=== PATIENT | male | born 1955 | race Caucasian/White ===

== ENCOUNTER → 2020-07-09 09:19 | Outpatient (CLI) | payer BC, SELFPAY ==
[2020-07-09 10:45] LABS: Add Manual Diff / Slide Review NO; Basophils Absolute Auto 100 /uL (0-100); Eosinophils Absolute Auto 200 /uL (0-450); Eosinophils Percent Auto 2.7 % (2-4); Hemoglobin 13.5 g/dL (13.5-17.5); Lymphocytes Absolute Auto 2400 /uL (1100-4500); Lymphocytes Percent Auto 26.6 % (25-40); Mean Corpuscular HGB Conc 33.7 % (30-36); Mean Corpuscular Hemoglobin 31.2 PG (26-34); Mean Corpuscular Volume 92.5 fL (80-100); Monocytes Absolute Auto 500 /uL (0-900); Monocytes Percent Auto 6.1 % (3-14); Neutrophils Absolute Auto 5600 /uL (1500-7000); Neutrophils Percent Auto 63.6 % (50-75); Platelet Count 288 X10^3/uL (150-400); Red Blood Cell Count 4.33 X10^6/uL (4.5-5.9); Red Cell Distribution Width 14.1 % (11.6-14.8); White Blood Cell Count 8.9 X10^3/uL (4.5-11.0)
== END ==
PROVIDERS: Family Provider Family Medicine; PCP Family Medicine; Referring Provider Podiatrist; Visit Provider Podiatrist
DX: Z01.818 Encounter for other preprocedural examination (principal); Z01.812 Encounter for preprocedural laboratory examination
CPT/HCPCS: 36415; 85025; 93005

== ENCOUNTER → 2020-08-03 14:11 | Outpatient (CLI) | payer BC, SELFPAY ==
[2020-08-03 15:35] LABS: COVID19 -Nasal RAPID Negative (Negative)
== END ==
PROVIDERS: Family Provider Family Medicine; PCP Family Medicine; Visit Provider Physician Assistant
DX: Z11.59 Encounter for screening for other viral diseases (principal)
CPT/HCPCS: 87635

== ENCOUNTER 2020-08-05 10:22 | Day surgery (SDC) | payer BC, SELFPAY ==
[2020-08-02 15:03] VITALS: BMI 30.1
[2020-08-05] VITALS (8 sets, daily range): BP systolic 136–166; BP diastolic 82–101; PULSE 82–91; RESP 11–18; TEMP 36.2–36.8; O2SAT 93–100; BMI 31.1
[2020-08-05] MEDS: LACTATED RINGERS 1,000 ML 100 ML IV ×2 (11:02→13:47)
--- NOTE | 2020-08-05 11:25 | PM.PREOP ---
Pre-operative Note COVID-19 COVID-19 status: Positive Result date/Date tested (Pos, Neg/Pending): 08/03/20 Interval Note History & Physical reviewed/Exam performed by Physician: Yes Changes to H&P: No
--- NOTE | 2020-08-05 11:26 | SUR.OPER ---
Supine on padded OR bed, head on pillow, arms secured on padded arm boards at <90 degrees abduction, legs uncrossed, safety belt at thigh, tape over blanket over nonoperative leg.
--- NOTE | 2020-08-05 11:26 | PM.OP.1 ---
Operative Date/Time/Diagnoses Date of procedure: 08/05/20 Time of procedure: : Pre-op diagnosis: Right first metatarsophalangeal joint arthritis Post-op diagnosis: same Procedure & Clinicians Procedure: Right first metatarsophalangeal joint arthrodesis Same procedure as scheduled: Yes Indications: Pain to the right great toe joint with spurring and other arthritic changes. Conservative measures failed to alleviate his pain and he wished to have surgical intervention at this time. Surgeon: Kristal Garza Click Yes if Unassisted: Yes Anesthesia Type: General Operative Notes Closure Type: primary Specimen(s): none sent Prosthetic devices, grafts, tissues, transplants, or devices: Verdigre great toe fusion plate with 4.0 cannulated screw, 3.5 and 2.7 screws (6), Vicryl, Nylon. Applied: implant(s) Estimated Blood Loss (mL): 30 Blood products transfused: none Tourniquet time (min): 86 Procedure in detail: The patient was brought to the operating room and placed on the operating table in the supine position. A tourniquet was placed about the patient's right ankle. After induction of general anesthesia the foot and ankle were prepped and draped in the usual aseptic manner. The tourniquet was inflated. Incision was made over the dorsal aspect of the right 1st metatarsophalangeal joint. The incision was deepened through subcutaneous tissues being careful to identify and retract all vital neurovascular structures. All bleeders were cauterized and ligated necessary. A significant amount of degenerative exostoses were noted to the dorsal 1st metatarsophalangeal joint. The capsule was opened and I also noted an enlarged medial eminence of the 1st metatarsal head. A saw was used to resect the medial eminence enlargement as well as some of the more prominent areas of spurring at the 1st metatarsophalangeal joint. The joint showed near complete loss of the articular cartilage on the 1st metatarsal head and just less than that on the phalangeal base. A guidewire was placed in the 1st metatarsal head and a reamer was used to resect the cartilage from the 1st metatarsal head and prepare the joint. The same procedure was performed to the proximal phalanx base. These guidewires were then removed. Subchondral drilling was performed to either side with the guidewire as well as some fish scaling using a small osteotome. The area was irrigated with copious amount of normal sterile saline. Temporary fixation across the joint was placed with a guidewire and this was checked under C-arm to be in appropriate alignment. A plate was chosen and any further reduction of prominences dorsally was performed with a rasp and rongeur. Using the aid of fluoroscopy, the guide wire was used as cannulation for the drill for a lag screw from the distal medial to proximal lateral 1st metatarsal phalangeal joint. Confirmed appropriate in all 3 planes, a partially threaded screw was placed and the guidewire removed. Good strength and reduction of the former joint. Plate was placed and with the aid of fluoroscopy a series of locking screws and a nonlocking screw were placed across the plate and steadied the joint well. Of this was checked on C-arm. The area is irrigated with copious amounts normal sterile saline. The tourniquet was deflated and prompt hyperemic response was seen to the foot. And no motion was noted at the 1st MTPJ. Subcutaneous closure was performed using Vicryl and nylon was used to close the skin. A sterile lightly compressive dressing was placed on the foot and he was placed in his postoperative boot. He was transferred to the PACU with vital signs stable and vascular status intact. Complications: none Post-operative Condition: stable Disposition: PACU Plan for aftercare: Following a period of postoperative monitoring, the patient be discharged home on written and oral postoperative instructions including keeping the dressing dry and intact, no weight-bearing on the operative foot, icing and elevating the foot when seated home. DVT prevention techniques have been reviewed. For the 1st postoperative visit the dressing will be changed and close to the 3rd or 4th postoperative week we will likely remove the sutures. X-rays will be taken at the 4th week postoperatively.
[2020-08-05] MEDS: CEFAZOLIN 2 GM/100 ML FROZ.PIGGY IV (12:02)
[2020-08-05] MEDS: BUPIVACAINE 0.5% (PF) VIAL 30 ML INJ (12:10)
== END 2020-08-05 15:33 | disposition home or self-care (01) ==
PROVIDERS: Family Provider Family Medicine; PCP Family Medicine; Referring Provider Family Medicine; Visit Provider Podiatrist
PROC: (CPT 28750; principal; 2020-08-05 11:45)
DX: M19.071 Primary osteoarthritis, right ankle and foot (principal); M20.5X1 Other deformities of toe(s) (acquired), right foot; I10 Essential (primary) hypertension; K21.9 Gastro-esophageal reflux disease without esophagitis; M79.7 Fibromyalgia; D64.9 Anemia, unspecified; G47.33 Obstructive sleep apnea (adult) (pediatric)
CPT/HCPCS: 28750; J0690; J1100; J2250; J2405; J2704; J3010

== ENCOUNTER → 2021-03-13 14:58 | Outpatient (CLI) | payer BC, SELFPAY ==
[2021-03-13 16:46] LABS: COVID19 -Nasal RAPID Negative (Negative)
== END ==
PROVIDERS: PCP Family Medicine; Visit Provider Physician Assistant
DX: Z01.812 Encounter for preprocedural laboratory examination (principal); Z20.822 Contact with and (suspected) exposure to COVID-19
CPT/HCPCS: 87635

== ENCOUNTER 2021-03-15 11:21 | Day surgery (SDC) | payer BC, SELFPAY ==
--- NOTE | 2021-03-15 | PATH_ITS ---
[facility] Accession Number: [id number] . 01 Material submitted: . PART A: small bowel - SMALL BOWEL PART B: gastrointestinal site - GASTRIC PART C: esophagus, E-G Junction - GE JUNCTION NODULE PART D: rectum - RECTAL POLYP . 01 Clinical history: . A: R/O CELIAC B: R/O H.P . 02 Diagnosis: A. Small Bowel, Biopsy: Duodenal mucosa with no diagnostic abnormality. Negative for active inflammation, features of sprue, dysplasia, or malignancy. . B. Stomach, Biopsy: Antral and body type mucosa with mild chronic gastritis. Negative for Helicobacter by immunohistochemistry. Negative for intestinal metaplasia. Negative for dysplasia and malignancy. . C. Gastroesophageal Junction, Nodule, Biopsy: Columnar mucosa with a few dilated glands, suggestive of fundic gland polyp. Negative for intestinal metaplasia by alcian blue stain. Negative for dysplasia and malignancy. . D. Rectum, Polyp, Biopsy: Hyperplastic polyp. [facility] 03/21/2021 1424 Local . 02 Electronically signed: . Daisy Brown MD, Pathologist NPI- [id number] . 01 Gross description: . Part A: SMALL BOWEL: Received in formalin are 2 fragment(s) of stroud, soft tissue measuring 0.4 x 0.3 x 0.2 cm to 0.3 x 0.3 x 0.3 cm submitted entirely in 1 cassette(s) Part B: GASTRIC: Received in formalin are 2 fragment(s) of stroud, soft tissue measuring 0.4 x 0.2 x 0.2 cm to 0.4 x 0.2 x 0.1 cm submitted entirely in 1 cassette(s) Part C: GE JUNCTION NODULE: Received in formalin is 1 fragment(s) of stroud, soft tissue measuring 0.5 x 0.3 x 0.2 cm submitted entirely in 1 cassette(s) Part D: RECTAL POLYP: Received in formalin are multiple fragment(s) of stroud, soft tissue measuring 1.4 x 0.4 x 0.1 cm in aggregate submitted entirely in 1 cassette(s) /LETTY 03/16/2021 0651 Local . 02 Microscopic: . B. An immunohistochemical stain was performed to evaluate for Helicobacter organisms and is negative. The control stain showed appropriate reactivity. . C. An alcian blue stain was performed to evaluate for intestinal metaplasia and is negative. The control stain showed appropriate reactivity. . * This test was developed and its performance characteristics determined by [facility]. It has not been cleared or approved by the U.S. Food and Drug Administration. The FDA has determined that such clearance or approval is not necessary. This test is used for clinical purposes. It should not be regarded as investigational or for research. . 02 Pathologist provided ICD-10: Z86.010, K63.5, D64.9 . 02 CPT . 934180, 493846, 674794, 437988, L85025, 881120 Performed at: 01 [facility] [address] [address], [place], [place] [id number] MD Trent Baltazar MD Phone: [phone] Performed at: 02 [facility] [address] [place] [id number] MD Daisy Brown MD Phone: [phone]
[2021-03-15 11:42] VITALS: BP 164/93; PULSE 93; RESP 15; TEMP 36.6; O2SAT 96; BMI 31.1
[2021-03-15] MEDS: SODIUM CHLORIDE 0.9% 1,000 ML 84 ML IV ×2 (11:53→13:00)
--- NOTE | 2021-03-15 12:15 | PM.HP.1 ---
History of Present Illness History of Present Illness Date Patient Seen: 03/15/21 Chief complaint: SDC Narrative: Anemia and rectal bleeding Patient History Medical History (Updated 08/02/20 @ 15:09 by Rasheeda Bocanegra RN) Anemia Exercise-induced asthma Fibromyalgia GERD (gastroesophageal reflux disease) HTN (hypertension) Sleep apnea Surgical History (Updated 08/02/20 @ 15:09 by Rasheeda Bocanegra RN) History of arthroplasty of right hip History of ear surgery History of mandibular surgery History of partial colectomy Hx of right knee surgery Hx of tonsillectomy Family & Social History Social History: household members spouse Tobacco & Substance use: Tobacco type cigarettes Smoking Status Former smoker alcohol intake current alcohol intake frequency 0-2 drinks per day Substance Use Type marijuana Meds Home Medications and Allergies Home Medications Medication Instructions Recorded Confirmed Type gabapentin 600 mg PO TID 08/02/20 03/15/21 History hydroxyzine HCl 25 mg PO DAILY 08/02/20 03/15/21 History lisinopril 5 mg PO DAILY 08/02/20 03/15/21 History metoprolol succinate 12.5 mg PO BEDTIME 08/02/20 03/15/21 History omeprazole 20 mg PO BID 08/02/20 03/15/21 History tadalafil 2.5 mg PO DAILY 08/02/20 03/15/21 History tamsulosin 0.4 mg PO BEDTIME 08/02/20 03/15/21 History fluticasone propionate 2 spray INTRANASAL DAILY 08/05/20 03/15/21 History loratadine [Claritin] 10 mg PO DAILY 08/05/20 03/15/21 History Allergies Allergy/AdvReac Type Severity Reaction Status Date / Time tramadol AdvReac Intermediate anger/pederson Verified 08/05/20 10:47 Exam Vital Signs (past 8 hours): - 03/15/21 11:42 Temperature 97.8 F Pulse Rate 93 H Respiratory Rate 15 Blood Pressure 164/93 H Pulse Oximetry 96 Oxygen Delivery Method Room Air Narrative Exam Narrative: Oropharynx free of lesions Chest clear to auscultation percussion Cardiac exam reveals no S3 or murmur Assessment & Plan Assessment & Plan narrative: Anemia and rectal bleeding. EGD and colonoscopy to be performed. Risks, benefits, alternatives have been explained.
--- NOTE | 2021-03-15 12:16 | PM.OP.ENDO ---
Operative Date/Time/Diagnoses Date of procedure: 03/15/21 Pre-op diagnosis: See indication and findings Procedure & Clinicians Study performed: EGD and colonoscopy Same procedure as scheduled: Yes Indications: Anemia and rectal bleeding Surgeon: Florencio Vazquez Procedure Notes Procedure in detail: After informed consent was obtained the patient was placed in left lateral decubitus position. The video upper scope was placed into the oropharynx and with the patient's help swallowed into the esophagus. The esophagus, stomach, duodenum were carefully examined. On withdrawal, retroflexed view the GE junction was performed. The scope was removed. The patient tolerated procedure well. The patient was then turned and the colonoscope substituted. The video colonoscope was introduced the rectum slowly advanced cecum. On slow withdrawal mucosa was carefully examined. Preparation was good. The scope was removed. The patient tolerated procedure well. Blood loss none Complications none Sedation Total sedation time 28 minutes Fentanyl 150 mcg Versed 10 mg IV titration Findings EGD 1. Normal esophagus to the squamocolumnar junction. 2. 6 mm sessile nodule at the squamocolumnar junction/gastric side. Two biopsies were taken. 3. 5 cm hiatal hernia 4. Patchy gastric erythema in pre-pyloric and antral position biopsies taken to rule out Helicobacter 5. Normal duodenal bulb and sweep biopsies taken to rule out celiac. Colonoscopy 1. 6 mm polyp just inside the anal verge Jumbo biopsies x2 and removed completely 2. Extensive diverticula particularly prominent in the transverse and right. 3. Possible small AVM in the transverse colon 4. Significant internal hemorrhoids are not hugely large. 5. Otherwise negative colonoscopy to cecum. Will await biopsies above. Nothing spectacular was found to explain his anemia however in the biopsies are negative for be referred to hematology. Pending biopsies of the rectal polyp recall should be in 5-10 years.
[2021-03-15] MEDS: fentaNYL 250 MCG/5 ML INJ IV (12:55)
[2021-03-15] MEDS: MIDAZOLAM 5 MG/5 ML VIAL IV (12:55)
[2021-03-15 13:15] VITALS: BP 132/76; PULSE 74; RESP 18; TEMP 36.5; O2SAT 97
[2021-03-15 13:20] VITALS: BP 132/76; PULSE 69; RESP 16; O2SAT 100
[2021-03-15 13:24] VITALS: BP 128/75; PULSE 79; RESP 16; TEMP 36.6; O2SAT 95
[2021-03-15 13:29] VITALS: BP 131/81; PULSE 77; RESP 16; TEMP 36.7; O2SAT 95
[2021-03-15 13:49] VITALS: BP 156/94; PULSE 71; RESP 16; TEMP 36.4; O2SAT 98
== END 2021-03-15 13:51 | disposition home or self-care (01) ==
PROVIDERS: PCP Registered Nurse; Referring Provider Internal Medicine Gastroenterology; Visit Provider Internal Medicine Gastroenterology
PROC: 0DJ08ZZ Inspection of Upper Intestinal Tract, Via Natural or Artificial Opening Endoscopic (ICD-10-PCS; CPT 43235; principal; 2021-03-15 12:30)
PROC: 0DJD8ZZ Inspection of Lower Intestinal Tract, Via Natural or Artificial Opening Endoscopic (ICD-10-PCS; CPT 45378; 2021-03-15 12:30)
DX: K62.5 Hemorrhage of anus and rectum (principal); D64.9 Anemia, unspecified; I10 Essential (primary) hypertension; J45.909 Unspecified asthma, uncomplicated; G47.33 Obstructive sleep apnea (adult) (pediatric); M79.7 Fibromyalgia; K44.9 Diaphragmatic hernia without obstruction or gangrene; K57.30 Diverticulosis of large intestine without perforation or abscess without bleeding; K64.8 Other hemorrhoids; K29.50 Unspecified chronic gastritis without bleeding; K62.1 Rectal polyp
CPT/HCPCS: 45380; 43239; J2250; J3010

== ENCOUNTER → 2022-08-27 08:45 | Outpatient (CLI) | payer BC, SELFPAY ==
[2022-08-27 09:32] LABS: Add Manual Diff / Slide Review NO; Basophils Absolute Auto 100 /uL (0-100); Basophils Percent Auto 1.3 % (0-2); Eosinophils Absolute Auto 200 /uL (0-450); Eosinophils Percent Auto 2.5 % (2-4); Hemoglobin 13.6 g/dL (13.5-17.5); Lymphocytes Absolute Auto 1900 /uL (1100-4500); Lymphocytes Percent Auto 24.7 % (25-40); Mean Corpuscular HGB Conc 34.9 % (30-36); Mean Corpuscular Volume 94.4 fL (80-100); Monocytes Absolute Auto 400 /uL (0-900); Monocytes Percent Auto 5.6 % (3-14); Neutrophils Absolute Auto 5100 /uL (1500-7000); Neutrophils Percent Auto 65.9 % (50-75); Platelet Count 291 X10^3/uL (150-400); Red Blood Cell Count 4.13 X10^6/uL (4.5-5.9); White Blood Cell Count 7.8 X10^3/uL (4.5-11.0)
[2022-08-27 17:34] LABS: TSH w/ Reflex to FT4 0.98 uIU/mL (0.47-4.68)
[2022-08-28 16:41] LABS: Alanine Aminotransferase 39 IU/L (<50); Albumin 4.6 g/dL (3.5-5.0); Albumin Globulin Ratio 1.4 (1.0-2.8); Alkaline Phosphatase 98 U/L (38-126); Aspartate Aminotransferase 28 IU/L (17-59); BUN Creatinine Ratio 24.6 (6-22); Bilirubin Total 0.4 mg/dL (0.2-1.3); Blood Urea Nitrogen 16 mg/dL (9-20); Calcium 9.4 mg/dL (8.4-10.2); Carbon Dioxide 23 mmol/L (22-32); Chloride 105 mmol/L (98-107); Cholesterol 229 mg/dL (140-199); Estimated Glomerular Filt Rate > 60 mL/min (>60); Globulin 3.3 g/dL (1.7-4.1); Glucose 81 mg/dL (80-110); HDL Cholesterol 47 mg/dL (40-60); HEMOLYSIS < 15 (0-50); LDL Cholesterol Calculated 146 mg/dL (<100); Potassium 4.2 mmol/L (3.4-5.1); Sodium 140 mmol/L (137-145); Total Protein 7.9 g/dL (6.3-8.2); Triglycerides 178 mg/dL (35-150)
[2022-08-28 17:08] LABS: Hemoglobin A1C% w Est Avg Glu 5.6 % (4.0-6.0)
[2022-08-28 17:26] LABS: Prostate Specific Antigen 2.13 ng/mL (0.10-4.00)
[2022-09-05 13:27] LABS: Percent Free Testosterone 4.03 % (1.50-4.20); Testosterone Free 9.62 ng/dL (5.00-21.00); Testosterone Total 238.6 ng/dL (264.0-916.0)
== END ==
PROVIDERS: PCP Registered Nurse; Referring Provider Family Medicine; Visit Provider Family Medicine
DX: F52.21 Male erectile disorder (principal); I10 Essential (primary) hypertension
CPT/HCPCS: 36415; 80053; 80061; 83036; 84153; 84402; 84403; 84443; 85025

== ENCOUNTER → 2023-08-30 11:05 | Outpatient (CLI) | payer BC, SELFPAY ==
[2023-08-30 15:20] LABS: BUN Creatinine Ratio 29.6 (6-22); Blood Urea Nitrogen 21 mg/dL (9-20); Carbon Dioxide 24 mmol/L (22-32); Chloride 103 mmol/L (98-107); Estimated Glomerular Filt Rate > 60 mL/min (>60); Glucose 95 mg/dL (80-110); HEMOLYSIS < 15 (0-50); Potassium 4.3 mmol/L (3.4-5.1); Sodium 138 mmol/L (137-145)
== END ==
PROVIDERS: PCP Registered Nurse; Referring Provider Surgery; Visit Provider Surgery
DX: R10.9 Unspecified abdominal pain (principal)
CPT/HCPCS: 36415; 80048

== ENCOUNTER → 2023-09-02 09:58 | Outpatient (CLI) | payer BC, SELFPAY ==
--- NOTE | 2023-09-02 09:59 | DI.CT.S_ITS ---
PROCEDURE: CT ABDOMEN PELVIS W CON INDICATIONS: rule out abdominal wall hernia TECHNIQUE: After the administration of oral and intravenous contrast, axial sections were acquired from the lung bases to the pubic symphysis. Coronal and sagittal reformats were performed. For radiation dose reduction, the following was used: automated exposure control, adjustment of mA and/or kV according to patient size. COMPARISON:[facility], CT, CT ABDOMEN PELVIS WITHOUT CONTRAST, 06/19/2018, 13:03. FINDINGS: Image quality: Excellent. Lung bases: Unremarkable. There is a fat containing paraesophageal hernia. Heart: No significant findings. ABDOMEN: Liver: The liver is diffusely hypodense suggesting steatosis. A probable hepatic hemangioma is present within the right hepatic lobe. Gallbladder: Unremarkable. Biliary ducts: No biliary dilation. Pancreas: No ductal dilation. Spleen: Size is within normal limits. Adrenal Glands: No adrenal nodules. Kidneys and Ureters: No hydronephrosis. No solid mass. No complex renal cystic lesion which requires follow up. Stomach and Bowel: Normal colonic caliber, without significant wall thickening. There are extensive sigmoid colon diverticular outpouchings. No mucosal thickening or pericolonic fat stranding. The appendix is not visualized; however there is no discrete right lower quadrant fluid or fat stranding to suggest acute appendicitis. Peritoneum: No abnormal intraperitoneal fluid. No free air. Ventral Wall: No hernia. Abdominal Nodes: No retroperitoneal or mesenteric adenopathy by size criteria. Vessels: Aorta and inferior vena cava are normal in size. PELVIS: Pelvic Organs: Unremarkable. Bladder: Unremarkable. Pelvic Nodes: No enlarged lymph nodes. Miscellaneous: There are large bilateral fat containing inguinal hernias. Bones: Unremarkable. IMPRESSION: 1. Hepatic steatosis. 2. Probable right hepatic hemangioma. Nonemergent hepatic ultrasound could be used to further characterize this finding. 3. Fat containing paraesophageal hernia. 4. Large bilateral fat containing inguinal hernias. 5. No ventral wall hernia. 6. Diverticulosis. No acute diverticulitis. Dictated by: Yaneth Garcia M.D. on 09/02/2023 at 13:19 Approved by: Yaneth Garcia M.D. on 09/02/2023 at 13:54
== END ==
PROVIDERS: PCP Registered Nurse; Referring Provider Surgery; Visit Provider Surgery
DX: K76.0 Fatty (change of) liver, not elsewhere classified (principal); K44.9 Diaphragmatic hernia without obstruction or gangrene; K40.20 Bilateral inguinal hernia, without obstruction or gangrene, not specified as recurrent; K57.30 Diverticulosis of large intestine without perforation or abscess without bleeding; R10.9 Unspecified abdominal pain
CPT/HCPCS: 74177; Q9967

== ENCOUNTER → 2023-11-28 07:31 | Outpatient (CLI) | payer BC, SELFPAY ==
--- NOTE | 2023-11-28 07:33 | DI.US.S_ITS ---
PROCEDURE: US ABD AORTA ANEURYSM SCREEN INDICATIONS: PERSONAL HISTORY OF NICOTINE DEPENDENCE TECHNIQUE: Real time scanning was performed of the aorta and iliac arteries, with image documentation. COMPARISON: [facility], CT, CT ABDOMEN PELVIS W CON, 09/02/2023, 11:21. FINDINGS: Aorta: Proximal aortic diameter is not well visualized. However, on the recent CT it measured approximately 2.6 cm. Mid-aorta measures 2.3 cm. Distal aortic diameter is 1.8 cm. Iliac arteries: Right common iliac artery is not well seen secondary to overlying bowel gas. Left common iliac artery is not well seen secondary to overlying bowel gas.. IMPRESSION: Is unremarkable study. No abdominal aortic aneurysm. Dictated by: Chad Yancey M.D. on 11/28/2023 at 9:24 Approved by: Chad Yancey M.D. on 11/28/2023 at 9:25
== END ==
LOC: US 07:32
PROVIDERS: PCP Registered Nurse; Referring Provider Registered Nurse; Visit Provider Registered Nurse
DX: Z13.6 Encounter for screening for cardiovascular disorders (principal); Z87.891 Personal history of nicotine dependence
CPT/HCPCS: 76706

== ENCOUNTER → 2024-06-25 07:05 | Outpatient (CLI) | payer BC, SELFPAY ==
--- NOTE | 2024-06-25 07:52 | EKG_ITS ---
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
[2024-06-25 08:08] LABS: Add Manual Diff / Slide Review NO; Basophils Absolute Auto 100 /uL (0-100); Eosinophils Absolute Auto 300 /uL (0-450); Eosinophils Percent Auto 3.2 % (2-4); Hematocrit 38.1 % (41-53); Hemoglobin 13.2 g/dL (13.5-17.5); Lymphocytes Absolute Auto 2000 /uL (1100-4500); Lymphocytes Percent Auto 24.5 % (25-40); Mean Corpuscular HGB Conc 34.7 % (30-36); Mean Corpuscular Hemoglobin 32.9 PG (26-34); Mean Corpuscular Volume 94.9 fL (80-100); Monocytes Absolute Auto 600 /uL (0-900); Monocytes Percent Auto 7.2 % (3-14); Neutrophils Absolute Auto 5300 /uL (1500-7000); Neutrophils Percent Auto 64.1 % (50-75); Platelet Count 285 X10^3/uL (150-400); Red Blood Cell Count 4.02 X10^6/uL (4.5-5.9); Red Cell Distribution Width 14.1 % (11.6-14.8); White Blood Cell Count 8.3 X10^3/uL (4.5-11.0)
[2024-06-25 09:04] LABS: Vitamin D 25 Hydroxy (D3) 54.7 ng/mL (30.0-100.0)
[2024-06-25 10:13] LABS: Hemoglobin A1C% w Est Avg Glu 5.4 % (4.0-6.0)
[2024-06-25 13:19] LABS: Albumin 4.6 g/dL (3.5-5.0); BUN Creatinine Ratio 21.3 (6-22); Blood Urea Nitrogen 16 mg/dL (9-20); Calcium 9.6 mg/dL (8.4-10.2); Carbon Dioxide 27 mmol/L (22-32); Chloride 105 mmol/L (98-107); Estimated Glomerular Filt Rate > 60 mL/min (>60); Glucose 95 mg/dL (80-110); HEMOLYSIS < 15 (0-50); Potassium 4.8 mmol/L (3.4-5.1); Sodium 140 mmol/L (137-145)
[2024-06-25 13:26] LABS: Prealbumin 32.3 mg/dL (17.6-36.0)
== END ==
PROVIDERS: PCP Registered Nurse; Referring Provider Orthopaedic Surgery Adult Reconstructive Orthopaedic Surgery; Visit Provider Orthopaedic Surgery Adult Reconstructive Orthopaedic Surgery
DX: Z01.818 Encounter for other preprocedural examination (principal); R77.0 Abnormality of albumin; E55.9 Vitamin D deficiency, unspecified; R73.9 Hyperglycemia, unspecified; Z01.812 Encounter for preprocedural laboratory examination
CPT/HCPCS: 36415; 80048; 82040; 82306; 83036; 84134; 85025; 93005

== ENCOUNTER → 2025-02-02 09:48 | Outpatient (CLI) | payer OTHER, SELFPAY ==
--- NOTE | 2025-02-02 09:50 | DI.RAD.S_ITS ---
PROCEDURE: ORTHO-XR KNEE WB RIGHT INDICATIONS: Right Knee Pain, s/p TKA TECHNIQUE: 3 views of the right knee, and 2 views of the left knee. [facility] 4+ VIE[facility] RIGHT, 09/14/2024, 15:03. FINDINGS: Bones: Patient is status post right knee joint arthroplasty. Hardware components are in expected positions. Visualized bony structures are intact. Mild narrowing of the left medial femorotibial joint. Soft tissues: Small right knee joint effusion. IMPRESSION: 1. Expected appearance and alignment of right TKA without radiographic evidence for interval hardware complication. 2. Mild left medial femorotibial joint degeneration. Dictated by: Chato Bradley [facility] Interpreted: Sohail Adams MD on 02/02/2025 at 11:25 Transcribed by: DAI on 02/02/2025 at 11:48 Approved by: Sohail Adams M.D. on 02/04/2025 at 10:40
== END ==
PROVIDERS: PCP Registered Nurse; Referring Provider Orthopaedic Surgery Adult Reconstructive Orthopaedic Surgery; Visit Provider Orthopaedic Surgery Adult Reconstructive Orthopaedic Surgery
DX: Z96.651 Presence of right artificial knee joint (principal); M17.11 Unilateral primary osteoarthritis, right knee; M25.461 Effusion, right knee
CPT/HCPCS: 73564

== ENCOUNTER → 2025-03-18 11:40 | Outpatient (CLI) | payer OTHER, SELFPAY ==
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
[2025-03-18 13:22] LABS: Add Manual Diff / Slide Review NO; Basophils Absolute Auto 100 /uL (0-100); Basophils Percent Auto 1.1 % (0-2); Eosinophils Absolute Auto 500 /uL (0-450); Eosinophils Percent Auto 5.2 % (2-4); Hematocrit 36.6 % (41-53); Hemoglobin 12.3 g/dL (13.5-17.5); Lymphocytes Absolute Auto 2700 /uL (1100-4500); Lymphocytes Percent Auto 29.6 % (25-40); Mean Corpuscular HGB Conc 33.7 % (30-36); Mean Corpuscular Hemoglobin 32.1 PG (26-34); Mean Corpuscular Volume 95.4 fL (80-100); Monocytes Absolute Auto 700 /uL (0-900); Monocytes Percent Auto 7.7 % (3-14); Neutrophils Absolute Auto 5000 /uL (1500-7000); Neutrophils Percent Auto 56.4 % (50-75); Platelet Count 363 X10^3/uL (150-400); Red Blood Cell Count 3.83 X10^6/uL (4.5-5.9); Red Cell Distribution Width 15.1 % (11.6-14.8)
[2025-03-18 13:45] LABS: Erythrocyte Sedimentation Rate 45 MM/HR (0-15)
[2025-03-18 13:53] LABS: C-Reactive Protein Quant 0.9 mg/dL (<1.0)
== END ==
PROVIDERS: PCP Registered Nurse; Referring Provider Registered Nurse; Visit Provider Orthopaedic Surgery Adult Reconstructive Orthopaedic Surgery
DX: S80.819A Abrasion, unspecified lower leg, initial encounter (principal); V29.99XA Rider (driver) (passenger) of other motorcycle injured in unspecified traffic accident, initial encounter; M62.9 Disorder of muscle, unspecified; Z96.651 Presence of right artificial knee joint; M67.462 Ganglion, left knee
CPT/HCPCS: 36415; 73718; 85025; 85651; 86140

== ENCOUNTER 2025-03-18 21:09 | Inpatient (IN) | payer OTHER, MEDICARE, SELFPAY ==
[2025-03-18] VITALS (7 sets, daily range): BP systolic 140; BP diastolic 80–81; PULSE 74–104; RESP 18; TEMP 36.5; O2SAT 91–95; BMI 33.9
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
[2025-03-19] VITALS (25 sets, daily range): BP systolic 133–177; BP diastolic 79–113; PULSE 9–100; RESP 6–97; TEMP 36.1–37.3; O2SAT 93–98; BMI 33.9
--- NOTE | 2025-03-19 | DI.RAD.S_ITS ---
PROCEDURE: XR CHEST 1V INDICATIONS: pre-op TECHNIQUE: One view of the chest was acquired. COMPARISON: None. FINDINGS: Surgical changes and devices: None. Lungs and pleura: Lungs are clear. No pleural effusions or pneumothorax. Mediastinum: Mediastinal contours appear normal. Heart size is normal. Bones and chest wall: No suspicious bony lesions. Overlying soft tissues appear unremarkable. IMPRESSION: No acute pulmonary process. Dictated by: Lisy Smith M.D. on 03/19/2025 at 0:21 Approved by: Lisy Smith M.D. on 03/19/2025 at 0:22
--- NOTE | 2025-03-19 00:29 | EKG_ITS ---
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
[2025-03-19] MEDS: VANCOMYCIN 2,000 MG in SODIUM CHLORIDE 0.9% 500 ML 250 MG IV (01:00)
[2025-03-19] MEDS: SODIUM CHLORIDE 0.9% 1,000 ML 1000 ML IV (01:00)
[2025-03-19 01:22] LABS: Add Manual Diff / Slide Review NO; Hematocrit 35.0 % (41-53); Hemoglobin 11.7 g/dL (13.5-17.5); Lymphocytes Absolute Auto 2200 /uL (1100-4500); Mean Corpuscular HGB Conc 33.6 % (30-36); Mean Corpuscular Hemoglobin 32.0 PG (26-34); Mean Corpuscular Volume 95.5 fL (80-100); Platelet Count 348 X10^3/uL (150-400)
[2025-03-19 01:24] LABS: INR 1.0 (0.9-1.3); Prothrombin Time 11.6 SECONDS (9.4-12.5)
[2025-03-19 01:28] LABS: Lactate (Lactic Acid) 2.3 mmol/L (0.7-2.1)
[2025-03-19 02:13] LABS: Alanine Aminotransferase 35 IU/L (<50); Albumin 4.7 g/dL (3.5-5.0); Albumin Globulin Ratio 1.5 (1.0-2.8); Alkaline Phosphatase 101 U/L (38-126); Blood Urea Nitrogen 20 mg/dL (9-20); Calcium 9.2 mg/dL (8.4-10.2); Carbon Dioxide 21 mmol/L (22-32); Chloride 108 mmol/L (98-107); Estimated Glomerular Filt Rate > 60 mL/min (>60); Globulin 3.1 g/dL (1.7-4.1); Glucose 105 mg/dL (70-99); HEMOLYSIS < 15 (0-50); Potassium 3.8 mmol/L (3.4-5.1); Sodium 143 mmol/L (137-145); Total Protein 7.8 g/dL (6.3-8.2)
[2025-03-19 02:54] LABS: Reflexed Lactate in 2 Hours Y
[2025-03-19 03:08] LABS: Lactate (Lactic Acid) 1.3 mmol/L (0.7-2.1)
--- NOTE | 2025-03-19 05:49 | PC.WOUNDPHOT ---
Left floyd Left floyd
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
[2025-03-19] MEDS: SODIUM CHLORIDE 0.9% 1,000 ML 100 ML IV (06:34)
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
[2025-03-19 08:45] LABS: Add Manual Diff / Slide Review NO; Hematocrit 33.5 % (41-53); Hemoglobin 11.4 g/dL (13.5-17.5); Lymphocytes Absolute Auto 1600 /uL (1100-4500); Mean Corpuscular HGB Conc 34.0 % (30-36); Mean Corpuscular Hemoglobin 32.4 PG (26-34); Mean Corpuscular Volume 95.4 fL (80-100); Platelet Count 326 X10^3/uL (150-400)
[2025-03-19] MEDS: FLUTICASONE 120 SPRAY/16 GM SPRAY.SUSP NASAL (08:49)
[2025-03-19] MEDS: VANCOMYCIN 1,250 MG/250 ML PIGGYBACK 250 MG IV ×2 (08:50→17:23)
[2025-03-19 09:09] LABS: Blood Urea Nitrogen 17 mg/dL (9-20); Calcium 8.7 mg/dL (8.4-10.2); Carbon Dioxide 21 mmol/L (22-32); Chloride 110 mmol/L (98-107); Estimated Glomerular Filt Rate > 60 mL/min (>60); Glucose 102 mg/dL (70-99); HEMOLYSIS < 15 (0-50); Potassium 4.2 mmol/L (3.4-5.1); Sodium 140 mmol/L (137-145)
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
--- NOTE | 2025-03-19 15:12 | SUR.OPER ---
Supine on padded OR bed, head on pillow, arms secured on padded arm boards at <90 degrees abduction, legs uncrossed, safety belt at thigh, tape over blanket over right lower leg.
[2025-03-19] MEDS: VANCOMYCIN 1,000 MG VIAL 1000 MG TOP (15:30)
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
[2025-03-19] MEDS: ACETAMINOPHEN IV 1,000 MG/100 ML VIAL 400 MG IV (16:07)
[2025-03-19] MEDS: PREGABALIN 25 MG CAPSULE 100 MG PO ×2 (16:17→20:35)
[2025-03-19] MEDS: LACTATED RINGERS 1,000 ML 100 ML IV (19:55)
[2025-03-19] MEDS: ACETAMINOPHEN 325 MG TABLET 650 MG PO (20:02)
[2025-03-19] MEDS: HYDROXYCHLOROQUINE 200 MG TABLET PO (20:34)
[2025-03-19] MEDS: SENNOSIDES 8.6 MG TABLET 17.2 MG PO (20:34)
[2025-03-19] MEDS: ASPIRIN EC 81 MG TABLET PO (20:34)
[2025-03-19] MEDS: DOCUSATE 100 MG CAPSULE PO (20:34)
[2025-03-19] MEDS: TAMSULOSIN 0.4 MG CAPSULE PO (20:34)
[2025-03-19] MEDS: METOPROLOL ER 25 MG TABLET 12.5 MG PO (20:35)
--- NOTE | 2025-03-19 21:11 | PM.PN.IH.1 ---
Subjective Subjective Interval history: I came by to check on Saqib this evening and found him resting comfortably in his hospital bed. He has minimal pain after the debridement earlier today. I discussed next steps with him and anticipate that while we await results from his intraoperative cultures today as well as results from the knee aspiration in clinic earlier this week that it will be most appropriate for him to remain in the hospital so that we can ensure we have appropriate plans in place when he leaves. As I placed packing in the wound today have ordered a wound care nurse consult. We will also need to set up outpatient wound care where he can have the packing changed on a regular basis. I will be quite surprised if we do not get a positive culture result. I therefore anticipate getting him set up with a PICC line and arranging for outpatient antibiotics. This would most likely best be done through an infectious disease doctor, particularly given his history of rheumatoid arthritis which places him in an immunocompromised status. There will be therefore a fair amount of outpatient coordination to be undertaken, given the need for wound care clinic, antibiotic administration which needs to be tailored based on his culture results, and Infectious Disease. I also would like to get his Synovasure results before he leaves the hospital so I can ensure that if I need to take him back for further surgery on the right knee we can do that in an expedient fashion. Exam Vital Signs (past 8 hours): - 03/19/25 14:08 03/19/25 15:48 03/19/25 15:53 Temperature 97.2 F L 97.4 F L Pulse Rate 90 9 L 9 L Respiratory Rate 16 97 H 97 H Blood Pressure 177/96 H 176/93 H 165/96 H Pulse Oximetry 98 Oxygen Delivery Method Room Air Room Air Room Air Oxygen Flow Rate 03/19/25 15:58 03/19/25 16:03 03/19/25 16:08 Temperature Pulse Rate 96 H 100 H 97 H Respiratory Rate 10 L 6 L 10 L Blood Pressure 157/95 H 157/95 H 158/92 H Pulse Oximetry 95 97 97 Oxygen Delivery Method Oxygen Flow Rate 03/19/25 16:13 03/19/25 16:30 03/19/25 17:00 Temperature 96.9 F L Pulse Rate 92 H 95 H 79 Respiratory Rate 11 L 20 Blood Pressure 140/84 169/103 H 164/97 H Pulse Oximetry 96 95 95 Oxygen Delivery Method Room Air Oxygen Flow Rate 0 0 03/19/25 17:30 03/19/25 18:30 03/19/25 19:30 Temperature 97.8 F Pulse Rate 78 100 H 93 H Respiratory Rate 16 Blood Pressure 161/96 H 158/93 H 153/87 H Pulse Oximetry 96 97 94 Oxygen Delivery Method Oxygen Flow Rate 0 0 0 03/19/25 20:35 Temperature Pulse Rate 93 H Respiratory Rate Blood Pressure 153/87 H Pulse Oximetry Oxygen Delivery Method Oxygen Flow Rate Oxygen Delivery Method Room Air Oxygen Flow Rate 0 Objective Labs 03/19/25 08:22 03/19/25 08:22 Labs: Laboratory Results - last 24 hr 03/19/25 03/19/25 03/19/25 00:45 02:50 08:22 WBC 6.7 7.8 RBC 3.67 L 3.51 L Hgb 11.7 L 11.4 L Hct 35.0 L 33.5 L MCV 95.5 95.4 MCH 32.0 32.4 MCHC 33.6 34.0 RDW 15.0 H 15.6 H Plt Count 348 326 Neut % (Auto) 53.7 66.8 Lymph % (Auto) 32.3 20.3 L [place] % (Auto) 7.0 8.0 Eos % (Auto) 5.7 H 3.9 Baso % (Auto) 1.3 1.0 Neut # (Auto) 3600 5200 Lymph # (Auto) 2200 1600 [place] # (Auto) 500 600 Eos # (Auto) 400 300 Baso # (Auto) 100 100 ESR 28 H D PT 11.6 INR 1.0 Sodium 143 140 Potassium 3.8 4.2 Chloride 108 H 110 H Carbon Dioxide 21 L 21 L BUN 20 17 Creatinine 0.68 0.55 L Estimated GFR > 60 > 60 BUN/Creatinine Ratio 29.4 H 30.9 H Glucose 105 H 102 H Lactate 2.3 H 1.3 Calcium 9.2 8.7 Total Bilirubin 0.3 AST 29 ALT 35 Alkaline Phosphatase 101 C-Reactive Protein 0.6 Total Protein 7.8 Albumin 4.7 Globulin 3.1 Albumin/Globulin Ratio 1.5 PFSH Medical History Hiatal hernia Rheumatoid arthritis Family history of myasthenia gravis Abdominal pain Anemia Exercise-induced asthma Fibromyalgia GERD (gastroesophageal reflux disease) HTN (hypertension) Sleep apnea Surgical History Status post total knee replacement, right H/O right inguinal hernia repair (2018) H/O exploratory laparotomy (1999) History of ear surgery History of mandibular surgery History of partial colectomy History of arthroplasty of right hip Hx of right knee surgery Hx of tonsillectomy Social History marital status: household members: spouse lives independently: Yes occupational status: previously employed Smoking Status: Never smoker alcohol intake: current substance use type: marijuana Assessment & Plan Time-Based Coding :: [TOTAL MINUTES] spent with patient and on the chart (including review of chart, obtaining history, exam, reviewing outside data, placing orders, documenting exam and treatment plan, and counseling patient) on [DATE]. 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
[2025-03-19] MEDS: CEFAZOLIN VIAL 3 GM in SODIUM CHLORIDE 0.9% 100 ML IV (23:14)
[2025-03-20] MEDS: VANCOMYCIN 1,250 MG/250 ML PIGGYBACK 250 MG IV ×3 (00:57→16:56)
[2025-03-20] MEDS: ACETAMINOPHEN 325 MG TABLET 650 MG PO ×3 (04:30→21:51)
[2025-03-20] MEDS: CEFAZOLIN VIAL 3 GM in SODIUM CHLORIDE 0.9% 100 ML IV (07:00)
[2025-03-20 08:00] VITALS: BP 164/91; PULSE 107; RESP 18; TEMP 36.8; O2SAT 96
--- NOTE | 2025-03-20 08:36 | P.PN_ITS ---
Subjective Subjective Interval history: Labs reviewed this morning. These show gram negative rods from his left floyd on one of the gram stains. No cultures have resulted yet as it has been less than 24 hours since surgery. His Synovasure results from his right knee aspiration in clinic earlier this week are not back in our system yet. I am working on ensuring those can be obtained over the weekend. This has included calling the [facility] lab in [place], although they unfortunately are not answering their phones over the weekend. Those results should be faxed to us and I am also working on ensuring that an [employer] employee will review our fax folder so that if it does come through I will see them immediately. While we await those results, PICC line placement could be a consideration if we are going to utilize IV antibiotics in the outpatient setting. We should also ensure that his empiric antibiotics cover gram negative rods given the initial gram stain results. More clarity should be provided by the forthcoming lab results. I have discussed with Saqib that I do not envision him going home this weekend while the labs are processed. Exam Vital Signs (past 8 hours): Oxygen Delivery Method Room Air Oxygen Flow Rate 0 Objective Labs 03/19/25 08:22 03/19/25 08:22 Labs: Laboratory Results - last 24 hr 03/19/25 08:22 WBC 7.8 RBC 3.51 L Hgb 11.4 L Hct 33.5 L MCV 95.4 MCH 32.4 MCHC 34.0 RDW 15.6 H Plt Count 326 Neut % (Auto) 66.8 Lymph % (Auto) 20.3 L [place] % (Auto) 8.0 Eos % (Auto) 3.9 Baso % (Auto) 1.0 Neut # (Auto) 5200 Lymph # (Auto) 1600 [place] # (Auto) 600 Eos # (Auto) 300 Baso # (Auto) 100 Sodium 140 Potassium 4.2 Chloride 110 H Carbon Dioxide 21 L BUN 17 Creatinine 0.55 L Estimated GFR > 60 BUN/Creatinine Ratio 30.9 H Glucose 102 H Calcium 8.7 PFSH Medical History Hiatal hernia Rheumatoid arthritis Family history of myasthenia gravis Abdominal pain Anemia Exercise-induced asthma Fibromyalgia GERD (gastroesophageal reflux disease) HTN (hypertension) Sleep apnea Surgical History Status post total knee replacement, right H/O right inguinal hernia repair (2018) H/O exploratory laparotomy (1999) History of ear surgery History of mandibular surgery History of partial colectomy History of arthroplasty of right hip Hx of right knee surgery Hx of tonsillectomy Social History marital status: household members: spouse lives independently: Yes occupational status: previously employed Smoking Status: Never smoker alcohol intake: current substance use type: marijuana Assessment & Plan Time-Based Coding :: [TOTAL MINUTES] spent with patient and on the chart (including review of chart, obtaining history, exam, reviewing outside data, placing orders, documenting exam and treatment plan, and counseling patient) on [DATE]. 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
[2025-03-20] MEDS: VANCOMYCIN TROUGH 1 REQUEST MISC (09:53)
[2025-03-20] MEDS: PANTOPRAZOLE DR 20 MG TABLET PO (09:55)
[2025-03-20] MEDS: FLUTICASONE 120 SPRAY/16 GM SPRAY.SUSP NASAL (09:55)
[2025-03-20] MEDS: HYDROXYCHLOROQUINE 200 MG TABLET PO ×2 (09:55→21:51)
[2025-03-20] MEDS: DOCUSATE 100 MG CAPSULE PO ×2 (09:55→21:51)
[2025-03-20] MEDS: SODIUM CHLORIDE 0.9% FLUSH 10 ML IV ×2 (09:56→21:53)
[2025-03-20] MEDS: CHOLECALCIFEROL (VITAMIN D3) 5,000 UNIT TABLET 5000 UNIT PO (09:56)
[2025-03-20] MEDS: PREGABALIN 25 MG CAPSULE 100 MG PO ×2 (09:56→22:01)
[2025-03-20] MEDS: ASPIRIN EC 81 MG TABLET PO ×2 (09:56→21:50)
[2025-03-20 09:57] VITALS: BP 155/82; PULSE 103
--- NOTE | 2025-03-20 10:30 | PM.PN.1 ---
Subjective Subjective Interval history: Summary: Had I&D yesterday, with cultures pending. S: He is doing well, minimal pain. Exam Vital Signs (past 8 hours): - 03/20/25 08:00 03/20/25 09:57 Temperature 98.2 F Pulse Rate 107 H 103 H Respiratory Rate 18 Blood Pressure 164/91 H 155/82 H Pulse Oximetry 96 Oxygen Flow Rate 0 Oxygen Delivery Method Room Air Oxygen Flow Rate 0 Narrative Exam Narrative: NAD, alert and oriented. Fluent speech. Lungs are clear, normal rate and effort. Heart is regular, no murmur gallop or rub. Abdomen is soft, non distended. Extremities are free of edema. Left leg wrapped. Objective Labs 03/19/25 08:22 03/19/25 08:22 Labs: Laboratory Results - last 24 hr 03/20/25 08:27 Vancomycin Trough 10.3 PFSH Medical History Hiatal hernia Rheumatoid arthritis Family history of myasthenia gravis Abdominal pain Anemia Exercise-induced asthma Fibromyalgia GERD (gastroesophageal reflux disease) HTN (hypertension) Sleep apnea Surgical History Status post total knee replacement, right H/O right inguinal hernia repair (2017) H/O exploratory laparotomy (1999) History of ear surgery History of mandibular surgery History of partial colectomy History of arthroplasty of right hip Hx of right knee surgery Hx of tonsillectomy Social History marital status: household members: spouse lives independently: Yes occupational status: previously employed Smoking Status: Never smoker alcohol intake: current substance use type: marijuana Assessment & Plan Assessment & Plan narrative: 1. Left leg cellulitis and abscess (S/) I&D 03/19), progressive in spite of oral antibiotics. Present on admission and active. 2. HTN, stable. 3. GERD, stable. Plan: -continue IV antibiotics for 2 more days to protect right leg hardware from contamination. -Leg elevation. SUPRIYA: 03/22 Time-Based Coding :: [TOTAL MINUTES] spent with patient and on the chart (including review of chart, obtaining history, exam, reviewing outside data, placing orders, documenting exam and treatment plan, and counseling patient) on [DATE].
--- NOTE | 2025-03-20 10:38 | CM.DPNOTE ---
DCP note HOT BRAIDER reviewed EMR per provider in morning rounds, dc today vs tomorrow. I&D of wound yesterday. unsure what wound care plan is, will dc post development of wound care plan. HOT BRAIDER will follow closely in case DCP coordination is needed for wound care plan. No barriers identified at this time to patient's safe discharge home w/family. CM team will plan to follow clinical course closely in case any DC needs or concerns arise. VIRGIE Pulliam
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
[2025-03-20] MEDS: cefTRIAXone 2,000 MG in SODIUM CHLORIDE 0.9% 100 ML 200 MG IV (12:21)
[2025-03-20] MEDS: IBUPROFEN 600 MG TABLET PO ×2 (12:22→22:01)
[2025-03-20 21:00] VITALS: BP 132/79; PULSE 86; RESP 17; TEMP 36.6; O2SAT 98
[2025-03-20] MEDS: TAMSULOSIN 0.4 MG CAPSULE PO (21:51)
[2025-03-20] MEDS: SENNOSIDES 8.6 MG TABLET 17.2 MG PO (21:51)
[2025-03-20 21:52] VITALS: BP 132/79; PULSE 86
[2025-03-20] MEDS: METOPROLOL ER 25 MG TABLET 12.5 MG PO (21:52)
[2025-03-20 22:50] VITALS: BP 140/92; PULSE 77
[2025-03-21] MEDS: VANCOMYCIN 1,250 MG/250 ML PIGGYBACK 250 MG IV ×3 (01:18→18:25)
[2025-03-21] MEDS: ACETAMINOPHEN 325 MG TABLET 650 MG PO ×3 (04:33→21:09)
[2025-03-21] MEDS: IBUPROFEN 600 MG TABLET PO ×3 (04:33→21:10)
--- NOTE | 2025-03-21 07:27 | PM.PN.1 ---
Subjective Subjective Interval history: S: He was left leg is doing well, cultures grew out E coli. He developed severe right hip and leg pain today which he describes as a sharp pain with some spasm and cramping. No other symptoms. Exam Vital Signs (past 8 hours): Oxygen Delivery Method Room Air Oxygen Flow Rate 0 Narrative Exam Narrative: He is in moderate distress, alert and oriented. Fluent speech. Lungs are clear, normal rate and effort. Heart is regular, no murmur gallop or rub. Abdomen is soft, non distended. Extremities are free of edema. Left leg is wrapped. Objective Labs 03/19/25 08:22 03/19/25 08:22 Labs: Laboratory Results - last 24 hr 03/20/25 08:27 Vancomycin Trough 10.3 PFSH Medical History Hiatal hernia Rheumatoid arthritis Family history of myasthenia gravis Abdominal pain Anemia Exercise-induced asthma Fibromyalgia GERD (gastroesophageal reflux disease) HTN (hypertension) Sleep apnea Surgical History Status post total knee replacement, right H/O right inguinal hernia repair (2018) H/O exploratory laparotomy (1999) History of ear surgery History of mandibular surgery History of partial colectomy History of arthroplasty of right hip Hx of right knee surgery Hx of tonsillectomy Social History marital status: household members: spouse lives independently: Yes occupational status: previously employed Smoking Status: Never smoker alcohol intake: current substance use type: marijuana Assessment & Plan Assessment & Plan narrative: 1. Left leg cellulitis and abscess (S/) I&D 03/19), progressive in spite of oral antibiotics. Present on admission and active. 2. HTN, stable. 3. GERD, stable. 4. Right leg spasm. Plan: -continue IV antibiotics, we will discuss with Orthopedics and Infectious Disease on Saturday with regard to duration of IV antibiotics cultures have grown out E coli.. -Leg elevation. -increased pain medication and add muscle relaxants. SUPRIYA: 03/22 Time-Based Coding :: [TOTAL MINUTES] spent with patient and on the chart (including review of chart, obtaining history, exam, reviewing outside data, placing orders, documenting exam and treatment plan, and counseling patient) on [DATE].
[2025-03-21 08:00] VITALS: BP 148/94; PULSE 75; RESP 16; TEMP 36.3; O2SAT 99
[2025-03-21] MEDS: ASPIRIN EC 81 MG TABLET PO ×2 (08:33→21:09)
[2025-03-21] MEDS: PANTOPRAZOLE DR 20 MG TABLET PO (08:33)
[2025-03-21] MEDS: CHOLECALCIFEROL (VITAMIN D3) 5,000 UNIT TABLET 5000 UNIT PO (08:33)
[2025-03-21] MEDS: PREGABALIN 25 MG CAPSULE 100 MG PO ×2 (08:33→21:10)
[2025-03-21] MEDS: HYDROXYCHLOROQUINE 200 MG TABLET PO ×2 (08:33→21:11)
[2025-03-21] MEDS: DOCUSATE 100 MG CAPSULE PO (08:33)
[2025-03-21] MEDS: FLUTICASONE 120 SPRAY/16 GM SPRAY.SUSP NASAL (08:34)
[2025-03-21] MEDS: SODIUM CHLORIDE 0.9% FLUSH 10 ML IV ×2 (08:37→21:12)
[2025-03-21] MEDS: HYDROMORPHONE 0.5 MG INJ IV ×2 (09:47→14:43)
[2025-03-21] MEDS: CYCLOBENZAPRINE 10 MG TABLET 5 MG PO ×2 (10:41→14:43)
--- NOTE | 2025-03-21 11:04 | PM.PN.IH.1 ---
Subjective Subjective Interval history: Chart reviewed this morning and discussed case with doll dresser drug abuse resistance education officer. Cultures are all showing E. Coli and sensitivies have returned for the I&D from Saturday. No Synovasure results have returned yet and I anticipate that they won't come back today as when I called the lab I was routed to voicemail which said that they were not open on the weekend. I did request a call back with results on an emergent basis but at this point anticipate that that will not occur until Saturday. Of note is that the equivocal culture result from broth only on the February 24 aspirate from the [facility] ER was for a different species than what is currently growing on the cultures from my I&D on Saturday. That broth only growth was for a gram positive species. This makes me hopeful that the right knee aspirate I performed in clinic last week will return negative however I am closely monitoring for that report to make further treatment decisions about the right knee. Given the positive growth from all cultures so far with concordant results on all of them I would like to initiate outpatient targeted IV antibiotics - particularly in the presence of a contralateral knee implant. [place] [facility] will be consulted on an outpatient basis for assistance with managing that. We will also need outpatient wound care to manage packing changes in the left floyd. I have requested an inpatient wound care consult and would like to have the first packing change be performed tomorrow by the wound care nurse. He will also get a PICC, likely tomorrow. Finally he has been having muscle spasms in his hip so I have added Flexeril. Exam Vital Signs (past 8 hours): - 03/21/25 08:00 Temperature 97.4 F L Pulse Rate 75 Respiratory Rate 16 Blood Pressure 148/94 H Pulse Oximetry 99 Oxygen Flow Rate 0 Oxygen Delivery Method Room Air Oxygen Flow Rate 0 Objective Labs 03/19/25 08:22 03/19/25 08:22 [facility] Medical History Hiatal hernia Rheumatoid arthritis Family history of myasthenia gravis Abdominal pain Anemia Exercise-induced asthma Fibromyalgia GERD (gastroesophageal reflux disease) HTN (hypertension) Sleep apnea Surgical History Status post total knee replacement, right H/O right inguinal hernia repair (2017) H/O exploratory laparotomy (1999) History of ear surgery History of mandibular surgery History of partial colectomy History of arthroplasty of right hip Hx of right knee surgery Hx of tonsillectomy Social History marital status: household members: spouse lives independently: Yes occupational status: previously employed Smoking Status: Never smoker alcohol intake: current substance use type: marijuana Assessment & Plan Time-Based Coding :: [TOTAL MINUTES] spent with patient and on the chart (including review of chart, obtaining history, exam, reviewing outside data, placing orders, documenting exam and treatment plan, and counseling patient) on [DATE]. 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
[2025-03-21] MEDS: cefTRIAXone 2,000 MG in SODIUM CHLORIDE 0.9% 100 ML 200 MG IV (11:57)
[2025-03-21 21:11] VITALS: BP 161/108; PULSE 82; PULSE 86; RESP 17; TEMP 36.8; O2SAT 98
[2025-03-21] MEDS: METOPROLOL ER 25 MG TABLET 12.5 MG PO (21:11)
[2025-03-21] MEDS: TAMSULOSIN 0.4 MG CAPSULE PO (21:11)
[2025-03-21 21:41] VITALS: BP 150/91; PULSE 80
[2025-03-22] MEDS: VANCOMYCIN 1,250 MG/250 ML PIGGYBACK 250 MG IV ×2 (01:21→08:52)
[2025-03-22] MEDS: IBUPROFEN 600 MG TABLET PO ×3 (05:33→22:09)
[2025-03-22] MEDS: ACETAMINOPHEN 325 MG TABLET 650 MG PO ×4 (05:33→22:10)
[2025-03-22 05:51] LABS: Hematocrit 31.9 % (41-53); Hemoglobin 11.0 g/dL (13.5-17.5); Mean Corpuscular HGB Conc 34.4 % (30-36); Mean Corpuscular Hemoglobin 32.4 PG (26-34); Mean Corpuscular Volume 94.3 fL (80-100); Platelet Count 313 X10^3/uL (150-400)
[2025-03-22 06:08] LABS: Blood Urea Nitrogen 15 mg/dL (9-20); Calcium 9.0 mg/dL (8.4-10.2); Carbon Dioxide 22 mmol/L (22-32); Chloride 106 mmol/L (98-107); Estimated Glomerular Filt Rate > 60 mL/min (>60); Glucose 93 mg/dL (70-99); HEMOLYSIS < 15 (0-50); Potassium 3.6 mmol/L (3.4-5.1); Sodium 137 mmol/L (137-145)
[2025-03-22 08:02] VITALS: BP 169/93; PULSE 92; RESP 19; TEMP 36.5; O2SAT 97
[2025-03-22 08:50] VITALS: BP 169/93; PULSE 92
[2025-03-22] MEDS: PANTOPRAZOLE DR 20 MG TABLET PO (08:50)
[2025-03-22] MEDS: ASPIRIN EC 81 MG TABLET PO ×2 (08:50→20:20)
[2025-03-22] MEDS: HYDROXYCHLOROQUINE 200 MG TABLET PO ×2 (08:51→20:20)
[2025-03-22] MEDS: CHOLECALCIFEROL (VITAMIN D3) 5,000 UNIT TABLET 5000 UNIT PO (08:51)
[2025-03-22] MEDS: FLUTICASONE 120 SPRAY/16 GM SPRAY.SUSP NASAL (08:51)
[2025-03-22] MEDS: SODIUM CHLORIDE 0.9% FLUSH 10 ML IV ×3 (08:52→21:39)
[2025-03-22] MEDS: PREGABALIN 25 MG CAPSULE 100 MG PO ×2 (08:52→20:20)
--- NOTE | 2025-03-22 10:28 | PM.PN.1 ---
Subjective Subjective Interval history: Summary: He was admitted with a left lower leg abscess, this was incised and drained surgically during this encounter. Cultures have been positive for E coli. His orthopedist, Dr. Tita tomas, would like to treat him with IV antibiotics longer as he was hard his right knee. He was having a lot of right knee and hip pain yesterday and spasm. He was treated with Dilaudid and this is resolved today. S: Minimal left leg pain. Minimal right leg pain. No dyspnea. Exam Vital Signs (past 8 hours): - 03/22/25 08:02 03/22/25 08:50 Temperature 97.7 F Pulse Rate 92 H 92 H Respiratory Rate 19 Blood Pressure 169/93 H 169/93 H Pulse Oximetry 97 Oxygen Flow Rate 0 Oxygen Delivery Method Room Air Oxygen Flow Rate 0 Narrative Exam Narrative: No acute distress, fluent speech. Lungs are clear, normal effort. Heart is regular, no murmur. Abdomen is flat, nondistended. Left leg is wrapped, no edema. Right knee is not tender, swollen or warm. Objective Imaging Left leg MRI: : Radiologist's impression: 1. Subcutaneous fluid collection measuring up to 5.8 cm at the anterior aspect of the proximal lower leg may represent and involving hematoma of uncertain sterility. There may be a tract to the skin surface. No definite soft tissue foreign body is seen. 2. Circumscribed oval [id number] lesion measuring 1.7 cm in the distal peroneus brevis muscle is of uncertain etiology. Differential considerations include both benign and malignant cystic and solid lesions such as ganglion cyst, peripheral nerve sheath tumor, or synovial sarcoma. Recommend nonemergent repeat MRI with contrast to evaluate for a solid mass. 3. Lobular ganglion cyst posterior to the knee measures up to 3.5 cm. Labs 03/22/25 05:32 03/22/25 05:32 Labs: Laboratory Results - last 24 hr 03/22/25 05:32 WBC 8.3 RBC 3.38 L Hgb 11.0 L Hct 31.9 L MCV 94.3 MCH 32.4 MCHC 34.4 RDW 15.4 H Plt Count 313 Sodium 137 Potassium 3.6 Chloride 106 Carbon Dioxide 22 BUN 15 Creatinine 0.55 L Estimated GFR > 60 BUN/Creatinine Ratio 27.3 H Glucose 93 Calcium 9.0 PFSH Medical History Hiatal hernia Rheumatoid arthritis Family history of myasthenia gravis Abdominal pain Anemia Exercise-induced asthma Fibromyalgia GERD (gastroesophageal reflux disease) HTN (hypertension) Sleep apnea Surgical History Status post total knee replacement, right H/O right inguinal hernia repair (2018) H/O exploratory laparotomy (1999) History of ear surgery History of mandibular surgery History of partial colectomy History of arthroplasty of right hip Hx of right knee surgery Hx of tonsillectomy Social History marital status: household members: spouse lives independently: Yes occupational status: previously employed Smoking Status: Never smoker alcohol intake: current substance use type: marijuana Assessment & Plan Assessment & Plan narrative: 1. Left leg cellulitis and abscess (S/) I&D 03/19. Cultures positive for E coli), progressive in spite of oral antibiotics. Present on admission and improved. 2. HTN, stable. 3. GERD, stable. 4. Right leg spasm. New and improved. Plan: -continue IV antibiotics, have a call out to Infectious Disease to get their opinion on IV antibiotics, and duration. This will likely be ceftriaxone. -Leg elevation. -increased pain medication and add muscle relaxants. -wound care team will see the patient today and provide recommendations for wound care. SUPRIYA: 03/23. Anticipate outpatient wound care and home IV antibiotics for 7-10 days. Time-Based Coding :: [TOTAL MINUTES] spent with patient and on the chart (including review of chart, obtaining history, exam, reviewing outside data, placing orders, documenting exam and treatment plan, and counseling patient) on [DATE].
--- NOTE | 2025-03-22 10:36 | CM.DPC ---
Addendum entered by VIRGIE Parrish 03/22/25 13:21: ADD: Per MD, plan is Ceftriaxone 2g Q24 for 2-6 weeks. PICC order placed. PETRA called and updated Mehul at [facility]. PETRA met bedside with pt and explained role and discussed current need for IV Abx at d/c and pt confirms he has no hx of IV abx. Discussed potential options of Home Infusion vs Outpt Infusion Clinic pending his insurance coverage. Pt confirms his primary insurance is [employer] through his . Pt's preference is Home Infusion if covered but would be agreeable to outpt clinic if needed. Donna then arrived bedside to place PICC and pt aware of likely d/c tomorrow if all set up and arranged. BF> Addendum entered by VIRGIE Parrish 03/22/25 10:52: ADD: Also faxed initial referral to [facility] ID clinic to review as ID MD likely to follow in outpt setting if IV-Abx needed at d/c. BF Original Note: DCP Cont: Per MD and Ortho Surgeon, cultures returned Ecoli+ and anticipate likely IV-Abx at discharge and will consult with ID MD today for recommendations and if IV-Abx needed PICC will be placed later today. Ortho Surgeon recommending/requesting Wound Consult for packing and wound care needs and ongoing outpt wound care. PETRA called [facility] and alerted them to the Wound Consult orders placed and they will attempt to see pt bedside today and will hold spot in their clinic for outpt f/u on 03/25 in anticipation of likely d/c in 1-2 days. PETRA faxed clinicals for official referral to [facility]. SW faxed new referral to [facility] to review although pending which IV abx recommended at d/c. Per Rn, pt has been independent in room. Plan: SW to follow closely for ID MD recommendations for abx at discharge and if IV then PICC placement and [facility] review to determine any out of pocket expense and [facility] consultation and recommendations. VIRGIE Parrish
[2025-03-22] MEDS: cefTRIAXone 2,000 MG in SODIUM CHLORIDE 0.9% 100 ML 200 MG IV (10:46)
--- NOTE | 2025-03-22 13:49 | DI.RAD.S_ITS ---
PROCEDURE: XR CHEST 1V INDICATIONS: PICC line verify TECHNIQUE: One view of the chest was acquired. COMPARISON: [facility], , XR CHEST 1V, 03/19/2025, 0:04. FINDINGS: Surgical changes and devices: Right-sided PICC line tip is in SVC. Lungs and pleura: Visualized right lung field is clear. No pleural effusions or pneumothorax. Mediastinum: Mediastinal contours appear normal. Heart size is normal. Bones and chest wall: No suspicious bony lesions. Overlying soft tissues appear unremarkable. IMPRESSION: Right-sided PICC line tip is in SVC. Visualized right lung field is clear. Dictated by: Rolf Vivar M.D. on 03/22/2025 at 14:29 Approved by: Rolf Vivar M.D. on 03/22/2025 at 14:30
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
--- NOTE | 2025-03-22 17:53 | P.PN_ITS ---
Subjective Subjective Interval history: I came by to check on Saqib this evening. He was sitting at the bedside with both knees flexed eating dinner. His was present with him. He met Dr. Brasher today who performed a packing change. Plans are being made for outpatient packing changes as well as antibiotic administration. He has a PICC line in place now. I still have not heard the results of his Synovasure aspiration from his right knee that I performed last Saturday. I have personally called the lab as of Saturday and requested a call back on an emergent basis with the results. My health care / medical job titles called them today as well. The results of that aspiration will be crucial in deciding whether to continue with isolated treatment for his left floyd or 2 also operate on his right knee. I do not think that he needs to remain here in the hospital until those results return has I could bring him back if they returned positive. On exam he was able to range his right knee without significant pain. He did have some hip pain over the weekend but clarified that this was located in his right buttock, right knee, and right foot at different times. Given the transitory nature of the location of the pain I am not concerned for infectious etiology. It has improved as well. His dressing was clean dry and intact during my evaluation. When he does discharge I want him to follow up with me at my next clinic after his discharge from the hospital. Exam Vital Signs (past 8 hours): Oxygen Delivery Method Room Air Oxygen Flow Rate 0 Objective Labs 03/22/25 05:32 03/22/25 05:32 Labs: Laboratory Results - last 24 hr 03/22/25 03/22/25 05:32 14:15 WBC 8.3 RBC 3.38 L Hgb 11.0 L Hct 31.9 L MCV 94.3 MCH 32.4 MCHC 34.4 RDW 15.4 H Plt Count 313 ESR 40 H Sodium 137 Potassium 3.6 Chloride 106 Carbon Dioxide 22 BUN 15 Creatinine 0.55 L Estimated GFR > 60 BUN/Creatinine Ratio 27.3 H Glucose 93 Calcium 9.0 C-Reactive Protein 0.7 PFSH Medical History Hiatal hernia Rheumatoid arthritis Family history of myasthenia gravis Abdominal pain Anemia Exercise-induced asthma Fibromyalgia GERD (gastroesophageal reflux disease) HTN (hypertension) Sleep apnea Surgical History Status post total knee replacement, right H/O right inguinal hernia repair (2018) H/O exploratory laparotomy (1999) History of ear surgery History of mandibular surgery History of partial colectomy History of arthroplasty of right hip Hx of right knee surgery Hx of tonsillectomy Social History marital status: household members: spouse lives independently: Yes occupational status: previously employed Smoking Status: Never smoker alcohol intake: current substance use type: marijuana Assessment & Plan Time-Based Coding :: [TOTAL MINUTES] spent with patient and on the chart (including review of chart, obtaining history, exam, reviewing outside data, placing orders, documenting exam and treatment plan, and counseling patient) on [DATE]. 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
[2025-03-22 20:20] VITALS: BP 149/85; PULSE 81; RESP 20; TEMP 36.7; O2SAT 96
[2025-03-22] MEDS: SENNOSIDES 8.6 MG TABLET 17.2 MG PO (20:20)
[2025-03-22] MEDS: DOCUSATE 100 MG CAPSULE PO (20:20)
[2025-03-22 20:21] VITALS: BP 149/85; PULSE 91
[2025-03-22] MEDS: METOPROLOL ER 25 MG TABLET 12.5 MG PO (20:21)
[2025-03-22] MEDS: TAMSULOSIN 0.4 MG CAPSULE PO (20:22)
--- NOTE | 2025-03-23 01:16 | PC.NURSE ---
Addendum entered by Inge Patiño R.N. 03/23/25 06:05: Denies any further burning/dysuria with urination. Original Note: Patient is alert and oriented. Breath sounds CTA with RA sat of 96%. HRR w/BP of 149/85 and received his scheduled Metoprolol. Denied nausea. BT present and reports having had 4 BM's on previous shift. Voiding per toilet and reports chronic frequency but denied any dysuria. Has been independent with mobility using cane or walker in room and reports he also walks in [place] intermittently. Right knee is swollen as is left ankle. Dressing to left LE is CDI. Endorses chronic left foot numbness but has good movement in ankle. Has denied any pain and is receiving scheduled Tylenol + Ibuprofen. Fall risk score is moderate. Declines use of SCD's as is up in room frequently.
[2025-03-23] MEDS: IBUPROFEN 600 MG TABLET PO ×2 (04:02→10:10)
[2025-03-23] MEDS: ACETAMINOPHEN 325 MG TABLET 650 MG PO ×2 (04:02→10:09)
[2025-03-23] MEDS: SODIUM CHLORIDE 0.9% FLUSH 10 ML IV ×2 (04:59→09:46)
[2025-03-23 05:20] LABS: Hematocrit 32.9 % (41-53); Hemoglobin 11.1 g/dL (13.5-17.5); Mean Corpuscular HGB Conc 33.7 % (30-36); Mean Corpuscular Hemoglobin 32.0 PG (26-34); Mean Corpuscular Volume 95.0 fL (80-100); Platelet Count 313 X10^3/uL (150-400)
[2025-03-23 05:29] LABS: Blood Urea Nitrogen 18 mg/dL (9-20); Calcium 9.2 mg/dL (8.4-10.2); Carbon Dioxide 23 mmol/L (22-32); Chloride 107 mmol/L (98-107); Estimated Glomerular Filt Rate > 60 mL/min (>60); Glucose 89 mg/dL (70-99); HEMOLYSIS < 15 (0-50); Potassium 3.5 mmol/L (3.4-5.1); Sodium 139 mmol/L (137-145)
--- NOTE | 2025-03-23 08:14 | PM.PN.1 ---
Subjective Subjective Date Patient Seen: 03/23/25 Exam Vital Signs (past 8 hours): Oxygen Delivery Method Room Air Oxygen Flow Rate 0 Objective Labs 03/23/25 05:05 03/23/25 05:05 Labs: Laboratory Results - last 24 hr 03/22/25 03/23/25 14:15 05:05 WBC 7.2 RBC 3.46 L Hgb 11.1 L Hct 32.9 L MCV 95.0 MCH 32.0 MCHC 33.7 RDW 15.3 H Plt Count 313 ESR 40 H Sodium 139 Potassium 3.5 Chloride 107 Carbon Dioxide 23 BUN 18 Creatinine 0.57 L Estimated GFR > 60 BUN/Creatinine Ratio 31.6 H Glucose 89 Calcium 9.2 C-Reactive Protein 0.7 PFSH Medical History Hiatal hernia Rheumatoid arthritis Family history of myasthenia gravis Abdominal pain Anemia Exercise-induced asthma Fibromyalgia GERD (gastroesophageal reflux disease) HTN (hypertension) Sleep apnea Surgical History Status post total knee replacement, right H/O right inguinal hernia repair (2017) H/O exploratory laparotomy (1999) History of ear surgery History of mandibular surgery History of partial colectomy History of arthroplasty of right hip Hx of right knee surgery Hx of tonsillectomy Social History marital status: household members: spouse lives independently: Yes occupational status: previously employed Smoking Status: Never smoker alcohol intake: current substance use type: marijuana Assessment & Plan Assessment & Plan narrative: 1. Left leg cellulitis and abscess (S/) I&D 03/19. Cultures positive for E coli), progressive in spite of oral antibiotics. Present on admission and improved. 2. HTN, stable. 3. GERD, stable. 4. Right leg spasm. New and improved. Plan: -continue IV antibiotics, have a call out to Infectious Disease to get their opinion on IV antibiotics, and duration. This will likely be ceftriaxone. -Leg elevation. -increased pain medication and add muscle relaxants. -wound care team will see the patient today and provide recommendations for wound care. SUPRIYA: 03/23. Anticipate outpatient wound care and home IV antibiotics for 7-10 days. Time-Based Coding :: [TOTAL MINUTES] spent with patient and on the chart (including review of chart, obtaining history, exam, reviewing outside data, placing orders, documenting exam and treatment plan, and counseling patient) on [DATE].
[2025-03-23 08:40] VITALS: BP 177/99; PULSE 90; RESP 16; TEMP 36.2; O2SAT 99
[2025-03-23 09:02] VITALS: BP 177/99
[2025-03-23] MEDS: ASPIRIN EC 81 MG TABLET PO (09:02)
[2025-03-23] MEDS: PANTOPRAZOLE DR 20 MG TABLET PO (09:02)
[2025-03-23] MEDS: HYDROXYCHLOROQUINE 200 MG TABLET PO (09:03)
[2025-03-23] MEDS: CHOLECALCIFEROL (VITAMIN D3) 5,000 UNIT TABLET 5000 UNIT PO (09:03)
[2025-03-23] MEDS: FLUTICASONE 120 SPRAY/16 GM SPRAY.SUSP NASAL (09:31)
--- NOTE | 2025-03-23 09:57 | P.PN_ITS ---
Subjective Subjective Interval history: Saqib's initial Synovasure results returned today and are screenshotted above. The Microbial ID panel and alpha defensin test were all negative. Synovial CRP was elevated. It is possible that an abscess at a remote location - which Saqib had at the time of the aspiration - could have globally elevated his CRP. I am not aware of any literature which has analyzed that specific question. Based on the preliminary results, I will consider this a negative aspiration and continue monitoring these results closely as the fluid culture could still result positive. The preliminary results are negative and his abscess in his left floyd grew E. Coli within 24 hours so this is encouraging. Additionally encouraging is that the staphylococcus panel was negative and the positive culture from the [facility] ED aspiration from the broth only was a staph species. Overall at this juncture I will continue watching this closely but do not plan to operate on Saqib's right knee. I want to see him back in clinic after he discharges to continue closely monitoring the right knee. Any concerning exam findings would lead me to re-aspirate his right knee for a third time. Exam Vital Signs (past 8 hours): - 03/23/25 08:40 03/23/25 09:02 Temperature 97.2 F L Pulse Rate 90 Respiratory Rate 16 Blood Pressure 177/99 H 177/99 H Pulse Oximetry 99 Oxygen Flow Rate 0 Oxygen Delivery Method Room Air Oxygen Flow Rate 0 Objective Labs 03/23/25 05:05 03/23/25 05:05 Labs: Laboratory Results - last 24 hr 03/22/25 03/23/25 14:15 05:05 WBC 7.2 RBC 3.46 L Hgb 11.1 L Hct 32.9 L MCV 95.0 MCH 32.0 MCHC 33.7 RDW 15.3 H Plt Count 313 ESR 40 H Sodium 139 Potassium 3.5 Chloride 107 Carbon Dioxide 23 BUN 18 Creatinine 0.57 L Estimated GFR > 60 BUN/Creatinine Ratio 31.6 H Glucose 89 Calcium 9.2 C-Reactive Protein 0.7 PFSH Medical History Hiatal hernia Rheumatoid arthritis Family history of myasthenia gravis Abdominal pain Anemia Exercise-induced asthma Fibromyalgia GERD (gastroesophageal reflux disease) HTN (hypertension) Sleep apnea Surgical History Status post total knee replacement, right H/O right inguinal hernia repair (2018) H/O exploratory laparotomy (1999) History of ear surgery History of mandibular surgery History of partial colectomy History of arthroplasty of right hip Hx of right knee surgery Hx of tonsillectomy Social History marital status: household members: spouse lives independently: Yes occupational status: previously employed Smoking Status: Never smoker alcohol intake: current substance use type: marijuana Assessment & Plan Post-op Postoperative Procedures: Procedures Operation Date: 03/19/25 15:00 Actual Procedure Side Surgeon p Tibia I&D Left Fernando Lu MD
[2025-03-23] MEDS: PREGABALIN 25 MG CAPSULE 100 MG PO (10:08)
[2025-03-23] MEDS: POTASSIUM CHLORIDE 20 MEQ TAB 40 MEQ PO (10:09)
[2025-03-23] MEDS: cefTRIAXone 2,000 MG in SODIUM CHLORIDE 0.9% 100 ML 200 MG IV (11:12)
--- NOTE | 2025-03-23 11:29 | CM.DPC ---
DCP Cont. Reviewed EMR and team rounds for pt's status updates. Pt has been medically cleared for home d/c. [facility] will meet him at his home at 3:30 today to do the infusion teach, followed by his first dose tomorrow. He will have his dose of IV ABO today prior to leaving, and his will transport him home before 3:00pm. Woundcare is meeting with him today to complete intake paperwork, and his first appt is this , 03/25.
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
--- NOTE | 2025-03-23 13:25 | PC.NURSE ---
dressing change to wound on L floyd. Previous dressing removed. area cleansed with saline and packed with 1/2 iodoform gauze. Telfa overlay followed by ABD pad and mandeep wrap. Photos taken for documentation (see wound photo note).
--- NOTE | 2025-03-30 18:14 | PC.NURSE ---
Late entry 03/21/25 0825a.m. Patient was administered tramadol 50mg po for progressing R knee pain.
== END 2025-03-23 14:35 | disposition home or self-care (01) | DRG 983 ==
LOC: ED 03-19 02:44 → AC 03-19 02:51
PROVIDERS: Hospitalist; Orthopaedic Surgery Adult Reconstructive Orthopaedic Surgery; Admitting Provider Internal Medicine; Emergency Provider Emergency Medicine; PCP Registered Nurse; Referring Provider Emergency Medicine; Visit Provider Internal Medicine
PROC: 0QBH0ZZ Excision of Left Tibia, Open Approach (ICD-10-PCS; principal; 2025-03-19 15:00)
DX: L03.116 Cellulitis of left lower limb (principal); L02.416 Cutaneous abscess of left lower limb; M06.9 Rheumatoid arthritis, unspecified; K21.9 Gastro-esophageal reflux disease without esophagitis; I10 Essential (primary) hypertension; B96.20 Unspecified Escherichia coli [E. coli] as the cause of diseases classified elsewhere; M62.838 Other muscle spasm; S81.832A Puncture wound without foreign body, left lower leg, initial encounter; M79.7 Fibromyalgia; V20.09XA Other motorcycle driver injured in collision with pedestrian or animal in nontraffic accident, initial encounter; Z96.651 Presence of right artificial knee joint; Z79.631 Long term (current) use of antimetabolite agent
CPT/HCPCS: 36415; 36569; 36592; 71045; 80048; 80053; 80202; 83605; 85025; 85027; 85610; 85651; 86140; 87070; 87075; 87076; 87077; 87176; 87186; 87205; 93005; 96365; 96366; 97110; 97162; 99284; 99291; J0131; J0330; J0690; J0696; J1100; J1171; J1642; J1885; J2250; J2405; J2704; J3010; J3490; J9250

== ENCOUNTER → 2025-03-25 11:32 | Outpatient (CLI) | payer OTHER, MEDICARE, SELFPAY ==
[2025-03-19 03:20] VITALS: BMI 33.9
== END ==
LOC: WC 11:57
PROVIDERS: PCP Registered Nurse; Referring Provider Registered Nurse; Visit Provider Surgery
DX: B99.9 Unspecified infectious disease (principal); S81.802A Unspecified open wound, left lower leg, initial encounter; M06.9 Rheumatoid arthritis, unspecified; Z82.69 Family history of other diseases of the musculoskeletal system and connective tissue; M79.7 Fibromyalgia; J45.990 Exercise induced bronchospasm; D64.9 Anemia, unspecified; I10 Essential (primary) hypertension; G47.30 Sleep apnea, unspecified
CPT/HCPCS: 11042; 99212; 99213

== ENCOUNTER → 2025-04-01 15:11 | Outpatient (CLI) | payer OTHER, SELFPAY ==
[2025-03-19 03:20] VITALS: BMI 33.9
[2025-04-01 15:41] LABS: Add Manual Diff / Slide Review NO; Hematocrit 34.0 % (41-53); Hemoglobin 11.4 g/dL (13.5-17.5); Lymphocytes Absolute Auto 2800 /uL (1100-4500); Mean Corpuscular HGB Conc 33.5 % (30-36); Mean Corpuscular Hemoglobin 32.0 PG (26-34); Mean Corpuscular Volume 95.4 fL (80-100); Platelet Count 350 X10^3/uL (150-400)
[2025-04-01 15:52] LABS: Alanine Aminotransferase 32 IU/L (<50); Albumin 4.7 g/dL (3.5-5.0); Albumin Globulin Ratio 1.7 (1.0-2.8); Alkaline Phosphatase 99 U/L (38-126); Blood Urea Nitrogen 21 mg/dL (9-20); Calcium 9.7 mg/dL (8.4-10.2); Carbon Dioxide 23 mmol/L (22-32); Chloride 103 mmol/L (98-107); Estimated Glomerular Filt Rate > 60 mL/min (>60); Globulin 2.7 g/dL (1.7-4.1); Glucose 84 mg/dL (70-99); HEMOLYSIS < 15 (0-50); Potassium 4.3 mmol/L (3.4-5.1); Sodium 138 mmol/L (137-145); Total Protein 7.4 g/dL (6.3-8.2)
== END ==
PROVIDERS: PCP Registered Nurse; Referring Provider Registered Nurse; Visit Provider Registered Nurse
DX: L02.416 Cutaneous abscess of left lower limb (principal)
CPT/HCPCS: 11042; 80053; 85025; 86140; 97605

== ENCOUNTER → 2025-04-01 15:14 | Outpatient (CLI) | payer OTHER, SELFPAY ==
[2025-03-19 03:20] VITALS: BMI 33.9
== END ==
PROVIDERS: PCP Registered Nurse; Referring Provider Registered Nurse; Visit Provider Surgery
DX: L02.416 Cutaneous abscess of left lower limb (principal)
CPT/HCPCS: 11042; 97605

== ENCOUNTER → 2025-04-05 14:03 | Outpatient (CLI) | payer OTHER, MEDICARE, SELFPAY ==
[2025-03-19 03:20] VITALS: BMI 33.9
== END ==
LOC: WC 14:06
PROVIDERS: PCP Registered Nurse; Referring Provider Registered Nurse; Visit Provider Surgery
DX: L02.416 Cutaneous abscess of left lower limb (principal); L98.8 Other specified disorders of the skin and subcutaneous tissue
CPT/HCPCS: 97605

== ENCOUNTER → 2025-04-08 13:40 | Outpatient (CLI) | payer OTHER, SELFPAY ==
[2025-03-19 03:20] VITALS: BMI 33.9
== END ==
LOC: WC 04-14 13:42
PROVIDERS: PCP Registered Nurse; Referring Provider Orthopaedic Surgery Adult Reconstructive Orthopaedic Surgery; Visit Provider Nurse Practitioner Family
DX: B99.9 Unspecified infectious disease (principal); S81.802A Unspecified open wound, left lower leg, initial encounter; V20.49XA Other motorcycle driver injured in collision with pedestrian or animal in traffic accident, initial encounter; R60.0 Localized edema
CPT/HCPCS: 11042; 97605; 99213

== ENCOUNTER → 2025-04-12 10:04 | Outpatient (CLI) | payer OTHER, MEDICARE, SELFPAY ==
[2025-03-19 03:20] VITALS: BMI 33.9
== END ==
LOC: WC 10:06
PROVIDERS: PCP Registered Nurse; Referring Provider Registered Nurse; Visit Provider Surgery
DX: B99.9 Unspecified infectious disease (principal); S81.802A Unspecified open wound, left lower leg, initial encounter; V20.49XA Other motorcycle driver injured in collision with pedestrian or animal in traffic accident, initial encounter
CPT/HCPCS: 97605

== ENCOUNTER → 2025-04-15 08:59 | Outpatient (CLI) | payer OTHER, SELFPAY ==
[2025-03-19 03:20] VITALS: BMI 33.9
== END ==
LOC: WC 09:00
PROVIDERS: PCP Registered Nurse; Referring Provider Registered Nurse; Visit Provider Surgery
DX: S81.802A Unspecified open wound, left lower leg, initial encounter (principal); B99.9 Unspecified infectious disease; V20.49XA Other motorcycle driver injured in collision with pedestrian or animal in traffic accident, initial encounter
CPT/HCPCS: 11042; 97605

== ENCOUNTER → 2025-04-19 09:10 | Outpatient (CLI) | payer OTHER, SELFPAY ==
[2025-03-19 03:20] VITALS: BMI 33.9
== END ==
LOC: WC 09:10
PROVIDERS: PCP Registered Nurse; Referring Provider Registered Nurse; Visit Provider Surgery
DX: S81.802A Unspecified open wound, left lower leg, initial encounter (principal)
CPT/HCPCS: 97605

== ENCOUNTER → 2025-05-20 12:17 | Outpatient (CLI) | payer OTHER, SELFPAY ==
[2025-03-19 03:20] VITALS: BMI 33.9
== END ==
PROVIDERS: PCP Registered Nurse; Referring Provider Registered Nurse; Visit Provider Surgery
DX: S81.802A Unspecified open wound, left lower leg, initial encounter (principal); V20.49XA Other motorcycle driver injured in collision with pedestrian or animal in traffic accident, initial encounter; L98.8 Other specified disorders of the skin and subcutaneous tissue; I10 Essential (primary) hypertension; G47.30 Sleep apnea, unspecified
CPT/HCPCS: 11042; 99213

== ENCOUNTER → 2025-06-02 10:27 | Outpatient (CLI) | payer OTHER, SELFPAY ==
[2025-03-19 03:20] VITALS: BMI 33.9
== END ==
LOC: WC 10:28
PROVIDERS: PCP Registered Nurse; Referring Provider Registered Nurse; Visit Provider Surgery
DX: S81.802D Unspecified open wound, left lower leg, subsequent encounter (principal); I10 Essential (primary) hypertension
CPT/HCPCS: 99213